=== PATIENT | female | born 1955 | race Caucasian/White ===

== ENCOUNTER 2022-11-20 15:15 | Emergency (ER) | payer OTHER, SELFPAY ==
[2022-11-20 15:19] VITALS: BP 152/72; PULSE 83; RESP 18; TEMP 36.8; O2SAT 98; BMI 19.9
--- NOTE | 2022-11-20 15:55 | ED_ITS ---
HPI - General Adult General Chief complaint: Extremity Pain/Injury, Lower Stated complaint: Red and swollen toes, Feels numb Time Seen by Provider: 11/20/22 15:23 Source: patient and family Mode of arrival: ambulatory History of Present Illness HPI narrative: 67-year-old female with notable history of well-controlled MS presents to the emergency department with a 1 day history of intermittent coldness in her toes of both feet left greater than right with slight purplish discoloration of her toes, seems to be new onset per her. Her also brings me pictures to show. There is numbness of both feet, intermittent but has been going on a little longer and was not insidious. Initially she tells me that it is on the top of the feet from the MTP and distal of all the toes but tells me that it also involves the whole foot in terms of the sensory changes. She says that the feet feel warm. She can still move the toes and feet normally. There is no injuries, no ulcers. She says the toes seem more swollen to her. There has been no prolonged immobilization. She has no history of DVT or PE, there is no swelling of the legs. She has no history of vascular disease, she is a lifetime nonsmoker. She admits that she does not typically wear shoes indoors. Note that it is the cold season. She is not experiencing any upper respiratory infection symptoms, no shortness of breath or cough. No recent fever. The toes feel more cold to the touch than the rest of the foot but it affects all the toes equally on the left foot. The right foot is also somewhat affected though the left is more so. There are no symptoms in the proximal leg abdomen chest. She has not tried any other interventions to help with her symptoms. Past medical history notable for hypertension, anxiety, restless leg syndrome, MS. She reports that the EMS was diagnosed in the early 1980s and she has not been on any treatment and has had no symptoms in decades. Home medications are citalopram, hydrochlorothiazide, Mirapex and nortriptyline which she uses for sleep. Allergy is to Septra. Socially she is a nonsmoker with no pertinent travel or injury. ROS is notable for the vascular and neurological symptoms as above, otherwise denies times 12 systems. Related Data Allergies Allergy/AdvReac Type Severity Reaction Status Date / Time sulfamethoxazole AdvReac Severe Anaphylaxis Verified 11/20/22 15:23 [From ] [facility] Social History Smoking Status: Unknown if ever smoked Exam Const: Vital Signs, click to edit/add: Vital Signs - 24 hr 11/20/22 15:19 Temperature 98.3 F Pulse Rate [Right Pulse Oximeter] 83 Respiratory Rate 18 Blood Pressure [Ri ght Upper Arm] 152/72 H Pulse Oximetry 98 Oxygen Delivery Me thod Room Air Documenting provider has reviewed patient's vital signs: yes Common no rmals: no apparent distress General appearance: cooperative, comfortable and well kempt Eye: General eye: normal appearance of both eyes Other: Normal visual gaze and tracking Resp: Common normals: normal respiratory effort, no use of accessory muscles and clear to auscultation bilaterally Effort & inspection: able to speak in complete sentences Auscultation: clear to auscultation bilaterally Cardio: Common normals: regular rhythm, S1 normal heart sound, S2 normal heart sound, no murmurs and peripheral pulses 2+ throughout Rhythm: regular rhythm Heart sounds: S1 normal and S2 normal Peripheral pulses: pulses 2+ throughout Other: Dorsalis pedis, posterior tibialis pulses are excellent and strong bilaterally. Capillary refill in all the toes is under 2 seconds. There is slight purplish discoloration of all of the toes of the left foot equally and slight decrease in temperature as compared to the midfoot and proximal foot from the MTP forward. Slight swelling of all of the toes equally with no evidence of cellulitis. Extremity: Common normals: no pedal edema Other: Joints of all the toes, foot, heel, ankle without redness, effusion or point tenderness. Neuro: Speech: speech normal Motor exam: no movement abnormalities noted Other: Normal sensation and movement in all toes, foot and ankle. Psych: Common normals: speech normal Appearance: well kempt Attitude: engaged Speech: normal speech Mood and affect: euthymic mood Memory/cognition: memory grossly intact Insight: insight good Judgement: judgment good Skin: Narrative: Slight venous discoloration of left greater than right toes with normal capillary refill. No ulcerations. No lacerations. Temperature is slightly cooler in the toes but adequate capillary refill. Strong pulses with no signs of any critical limb ischemia. Slight varicose veins noted on both feet and ankles. Course Vital Signs Vital signs: Initial Vital Signs Temperature 98.3 F 11/20/22 15:19 Temperature Source Temporal Artery Scan 11/20/22 15:19 Pulse Rate 83 11/20/22 15:19 Pulse Rhythm Regular 11/20/22 15:19 Pulse Strength 3+ Normal 11/20/22 15:19 Respiratory Rate 18 11/20/22 15:19 Blood Pressure 152/72 H 11/20/22 15:19 Blood Pressure Mean 98 11/20/22 15:19 Blood Pressure Position Sitting 11/20/22 15:19 Pulse Oximetry 98 11/20/22 15:19 Oxygen Delivery Method Room Air 11/20/22 15:19 Vital Signs Temperature 98.3 F 11/20/22 15:19 Pulse Rate 83 11/20/22 15:19 Respiratory Rate 18 11/20/22 15:19 Blood Pressure 152/72 H 11/20/22 15:19 Pulse Oximetry 98 11/20/22 15:19 Oxygen Delivery Method Room Air 11/20/22 15:19 Temperature 98.3 F 11/20/22 15:19 Pulse Rate 83 11/20/22 15:19 Respiratory Rate 18 11/20/22 15:19 Blood Pressure 152/72 H 11/20/22 15:19 Pulse Oximetry 98 11/20/22 15:19 Oxygen Delivery Method Room Air 11/20/22 15:19 Medical Decision Making MDM Narrative Medical decision making narrative: No signs of critical limb ischemia. Slight dependent edema, possible very mild venous stasis of the toes. Counseled that her mild MS may also be a factor with this but there are no signs of vascular compromise or emergent issues today. She likely has some degree of age related mild peripheral neuropathy or complications from her MS that are causing some mild temperature changes to her feet but again, bilateral and nonfocal and not suspicious of any acute neurological pathology today. I do not recommend CT, vascular imaging, ultrasound, etc. since her peripheral pulses are so strong and her capillary refill is normal. Counseled that if her symptoms are bothersome, I would strongly recommend that she begin wearing socks and shoes indoors to help maintain better temperature, consider compression socks to help with venous stasis. If she is noticing more leg swelling especially on long trips and in the recumbent position, consider elevation. If the neurological symptoms continue to be bothersome, I would recommend input from primary care or neurology. All questions answered. Discharge Plan Discharge Clinical Impression: Venous stasis Patient Disposition: Home w/ Parent or Adult Condition: Stable Instructions: Venous Insufficiency (DC) Additional Instructions: There are no signs of any problems with the arteries that deliver blood to your feet or toes. This is great news. Unfortunately, this cold sensation in the toes and slight discoloration of the skin is going to be an ongoing condition for you but thankfully does not need any aggressive intervention. As we discussed, wearing compression socks will help with venous return and decrease your swelling and slight discoloration. Also recommend that you are both socks and shoes even indoors to help reduce injury and help maintain temperature control. I do think that having a history of MS is making your symptoms more aggressive than the average women your age. It is common that there is a little bit of numbness in the feet at this age and I would not seek more aggressive management of MS unless your symptoms are worsening in other areas. Sometimes the medications that you take can cause more numbness in the feet as well but since your symptoms are so mild, I do not recommend any additional changes to those either. The capillary refill to all of your toes is strong and your peripheral pulses are very good as well. I do not recommend ultrasound, aspirin therapy or other intervention for these. Please follow-up with your primary care provider if your symptoms become more bothersome. As we discussed, if there is severe pain in the feet, truly blue or black toes, ulcers or inability to move your foot, this would be very concerning. You should seek urgent re-evaluation if those occur. Keeping your feet covered, warm and elevated will reduce your symptoms. There is no restriction on your activity. Activity Level: No Restrictions Discharge Diet: Regular Stand Alone Forms: [facility] Info Instructions
== END 2022-11-20 16:02 | disposition home or self-care (01) ==
PROVIDERS: Emergency Provider Family Medicine; PCP Family Medicine
DX: I87.8 Other specified disorders of veins (principal)
CPT/HCPCS: 99282; 99283